=== PATIENT | female | born 1985 | race Two or more races ===

== ENCOUNTER 2018-01-24 16:31 | Emergency (ER) | payer BC, OTHER ==
[2018-01-24] MEDS: ONDANSETRON (ODT) 4 MG TAB ODT (18:38)
[2018-01-24] MEDS: HYDROCODONE/APAP (5/325) TAB PO (18:41)
== END 2018-01-24 20:09 | disposition home or self-care (01) ==
LOC: FTE 16:31
DX: R51 Headache (principal); M54.2 Cervicalgia
CPT/HCPCS: 70450; 72125; 99284-25